=== PATIENT | male | born 1940 | race Caucasian/White ===

== ENCOUNTER → 2018-10-12 10:44 | Day surgery (SDC) | payer MEDICARE, BC ==
[~2018-10-12 10:44] MED LIST: Acetaminophen TAB* 325 MG PO PRN; Buffered Lidocaine 1% SYRIN* 1 ML/SYRINGE INTRADERM ONE; Bupivacaine 0.5% SDV PF* 30ML VIAL ONE; Lactated Ringers 1000 ML Bag* 1,000 ML IV SCH; Lidocaine 1% INJ* 10 MG/ML 30 ML SDV ONE; Midazolam* 1 MG/ML 5 ML VIAL (5 MG) ONE; Naloxone* 0.4 MG/ML 1 ML VIAL IV PRN; Ondansetron INJ* 2 MG/ML VIAL IV PRN; ceFAZolin 2 GM PREMIX in ORs 2 GM/50 ML BAG ONE; fentaNYL* 50 MCG/ML 2 ML VIAL (100 MCG VIAL) IV PRN; fentaNYL* 50 MCG/ML 2 ML VIAL (100 MCG VIAL) ONE; oxyCODONE/Acetamin 5/325 MG* TAB PO PRN
[2018-10-12 15:12] VITALS: BP 132/79
--- NOTE | 2018-10-13 00:48 | OP ---
CC: PCP, Javan Ivy MD * DATE OF OPERATION: 10/12/18 - [facility] DATE OF : 40 SURGEON: Danilo Martinez MD. PROJECTION CAMERA OPERATOR: BHARGAVI Aaron. An city carrier assistant was needed for the entirety of the case with positioning and retraction. ANESTHESIOLOGIST: Dr. Polanco. ANESTHESIA: Local MAC. PRE-OP DIAGNOSIS: Left small finger distal phalanx retained foreign body with subsequent infection. POST-OP DIAGNOSIS: Left small finger distal phalanx retained foreign body with subsequent infection. OPERATIVE PROCEDURE: Left small finger distal phalanx I and D with removal of foreign body. COMPLICATIONS: None. ESTIMATED BLOOD LOSS: Minimal. TOURNIQUET TIME: A tourniquet was used for this procedure for less than 10 minutes. DISPOSITION: Stable. SPECIMEN: Foreign body and specimen for Gram stain and culture sent to the lab. INDICATIONS: Mr. Pollo Moran is a 78-year-old male who presented in late August with pain along his little finger distal phalanx and the fat pad. He states around Thanksgiving time he was removing a forced air furnace and probably may have had a splinter or metal shard that was stuck in his finger. It did not quite bother him until this past August. Anytime he put pressure on it, it started to bother him. We scheduled surgery initially on 10/17/18, but over the last 2 to 3 days, he started noticing that it is getting green and more swollen and a little bit more uncomfortable. He underwent medical risk optimization from his child caregiver and decided to proceed with surgery earlier due to a possible infection. After extensive discussion of risks and benefits of operative and nonoperative treatment, he has elected to proceed with surgical treatment. Risks and benefits include, but are not limited to, bleeding; infection; damage to nerves, vessels, and surrounding structures; wound nonhealing; persistent pain; need for further surgery; scarring; stiffness ; incomplete relief of symptoms; and risks of anesthesia. He has elected to proceed. DESCRIPTION OF PROCEDURE: The patient was greeted in the preoperative area by the attending surgeon. The correct extremity was marked and consent was confirmed. The patient was then brought back to the operating suite where he was left in the stretcher pad and placed in the supine position. His hand was extended on an arm board. The patient then underwent local MAC. The left forearm and hand were then prepped and draped in usual sterile fashion beginning with chlorhexidine soap, scrub, and alcohol wipe, and a final prep of ChloraPrep. There were no open wounds, but the left finger had a large abscess that was apparent with the center the object of interest. Again, there was no open wound or draining. After an appropriate surgical pause indicating side, site, procedure, administration of antibiotics, approximately 10 cc of 1% lidocaine was injected and then a tourniquet was placed. Once we ensured that the block was working and the patient was under some light sedation, a 15-blade was used to make an incision over the largest part of the abscess. Pus was readily exposed. The edges of the incision were then ellipsed and a foreign body which was a brown, folded, splinter- like material, it could have been fiber glass, it is hard to say, was then removed from the center of the superficial abscess. It had been walled off. The 15-blade was then used to remove the pseudocapsule that formed around this and the wound was thoroughly lavaged and removed of any infection. The wound was then irrigated with sterile saline. Approximately 1 L saline was used to thoroughly lavage this. Good bleeding tissue was present at the end of the case. The foreign body was sent for specimen, as well as specimens for Gram stain and culture. The wound was then reapproximated with 4-0 nylon in loose approximation so that it can undergo soapy soaks and heal ultimately inside out. The wound was then bandaged carefully, the tourniquet was released , the finger was pink and well perfused. The patient was then awoken from anesthesia and transferred to PACU in stable condition. POSTOPERATIVE PLAN: He will be nonweightbearing. He will keep the dressing on for 1 or 2 days and then begin soapy soaks and wheat washer soap. He will also be discharged on a week's worth of antibiotics. I will see the patient back in approximately 1 week. [id number]/CPS #: [id number] [facility]
== END | disposition home or self-care (01) ==
LOC: OR 10:44
PROVIDERS: ATTEND Orthopaedic Surgery
DX: S60.457A Superficial foreign body of left little finger, initial encounter (principal); L08.9 Local infection of the skin and subcutaneous tissue, unspecified; Y92.9 Unspecified place or not applicable; Z87.891 Personal history of nicotine dependence; X58.XXXA Exposure to other specified factors, initial encounter; I10 Essential (primary) hypertension; E78.00 Pure hypercholesterolemia, unspecified; M19.90 Unspecified osteoarthritis, unspecified site
CPT/HCPCS: 87070; 87073; 87077; 87186; 87205; 87640; 87641; 88300; J0690; J2250; J3010; J3490